=== PATIENT | female | born 1985 | race Caucasian/White ===

== ENCOUNTER 2023-05-19 11:33 | Emergency (ER) | payer MEDICAID ==
[~2023-05-19] VITALS: Ht 152.4 cm; Wt 68.5 kg
[2023-05-19 11:49] VITALS: O2SAT 100
[2023-05-19] MEDS: KETOROLAC 30MG/ML VIAL IM ONE (13:28)
[2023-05-19] MEDS: ACETAMINOPHEN 325MG TABLET PO ONE (13:28)
[2023-05-19 13:57] LABS: CLARITY URINE CLOUDY (CLEAR); COLOR URINE YELLOW (YELLOW); GLUCOSE URINE NEGATIVE (NEGATIVE); KETONES URINE NEGATIVE (NEGATIVE); LEUKOCYTE ESTERASE URINE NEGATIVE (NEGATIVE); NITRITE URINE NEGATIVE (NEGATIVE); OCCULT BLOOD URINE NEGATIVE (NEGATIVE); PROTEIN URINE 2+ (NEGATIVE); SPECIFIC GRAVITY URINE 1.021 (1.005-1.030); UROBILINOGEN URINE 0.2 E.U./dL (0.2-1.0)
[2023-05-19 14:13] LABS: MUCUS URINE 2+ /lpf (< = 2+); SQUAMOUS EPITHELIAL CELL URINE 2+ /lpf (RARE/1+)
[2023-05-19 14:14] LABS: BACTERIA URINE 2+; RBC URINE 0-2 /hpf (0-2); WBC URINE 0-2 /hpf (0-2)
[2023-05-19] MEDS ORDERED: ACET-2708 MT (14:15)
[2023-05-19] MEDS ORDERED: LIDO700A15 TP (14:15)
[2023-05-19] MEDS ORDERED: IBUP-2028 MT (14:15)
[2023-05-19 14:55] VITALS: BP 145/78; PULSE 88; RESP 18; TEMP 98.7
== END 2023-05-19 14:56 | disposition home or self-care (01) ==
LOC: ER 13:50
DX: M54.50 Low back pain, unspecified (principal); I10 Essential (primary) hypertension; Z98.890 Other specified postprocedural states
CPT/HCPCS: 99283; 81003; 81025; 96372; J1885